=== PATIENT | male | born 2005 | race Two or more races ===

== ENCOUNTER → 2023-03-10 12:52 | Outpatient (BNVA) | payer OTHER, SELFPAY | PROVIDERS: Visit Provider Physician Assistant | DX: M77.8 Other enthesopathies, not elsewhere classified (principal) | CPT/HCPCS: 99203 ==

== ENCOUNTER → 2023-03-17 10:58 | Outpatient (BNVA) | payer OTHER, SELFPAY | PROVIDERS: Visit Provider Physician Assistant | DX: M25.531 Pain in right wrist (principal); M25.532 Pain in left wrist | CPT/HCPCS: 99213 ==

== ENCOUNTER → 2023-04-12 08:54 | Outpatient (BNVA) | payer OTHER, SELFPAY | PROVIDERS: Visit Provider Physician Assistant | DX: M77.8 Other enthesopathies, not elsewhere classified (principal) | CPT/HCPCS: 99213 ==

== ENCOUNTER → 2023-06-28 13:02 | Outpatient (BNVA) | payer OTHER, SELFPAY | PROVIDERS: Visit Provider Physician Assistant Medical | DX: M77.8 Other enthesopathies, not elsewhere classified (principal) | CPT/HCPCS: 99213 ==

== ENCOUNTER → 2023-07-13 11:07 | Outpatient (BNVA) | payer OTHER, SELFPAY | PROVIDERS: Visit Provider Physician Assistant | DX: M77.8 Other enthesopathies, not elsewhere classified (principal) | CPT/HCPCS: 99214 ==

== ENCOUNTER 2023-07-26 11:18 | Outpatient (AMB) | payer OTHER, SELFPAY ==
--- NOTE | 2023-07-26 11:27 | MHC.OFFVIS ---
Intake Vital Signs 07/26/23 11:29 Height 5 ft 5 in Weight 230 lb BMI 38.3 Handedness Right Intake Visit Reasons: water tender- Left wrist tendonitis Intake Note: Yosvany is a 17 year old right hand dominant male who presents today as a new patient for a evaluation of his left wrist pain, DOI 06/28/23. Patient reports he was at work and was working on a bolt line and he was putting a pin in the object he felt a sharp pain on the volar aspect of the wrist. He states that he also had some numbness and tingling after taking Ibuprofen. 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 Occured 1 month ago. Pain on left wrist. Occasional numbness on left palm, few times during day at most, sometimes at night, could affect 3rd and 4th finger. No swelling or redness. Dropped groceries a week ago. He mentions a similar incident, both wrists that time, last year. Treated ibuprofen and resolved. Treatment done so far: NSAIDs - helping wrist braces - helping, at night therapy - OT notes reviewed. Currently put on inability to work right now. [facility] Social History (Updated 07/26/23 @ 11:35 by Bobbi Desouza) Alcohol intake: never Patient Tobacco Use Status: Never used Tobacco Current occupational status: employed Current occupation: [employer]/ right hand dominant Review of Systems Const All systems reviewed & are unremarkable except as noted in HPI and below Physical Exam Vital Signs: BMI result Body Mass Index 38.3 Constitutional: Patient appears to be in no acute distress, well nourished and well developed. MSK: Inspection reveals appropriate head and neck positioning. No pain with palpation over the neck musculature. Cervical ROM was full. Spurling's sign negative. Bilateral shoulder ROM WNL. No ligamentous laxity or crepitance. No increased effusion. Hawkin's test is negative. No joint effusion noted. No deformity noted. No intrinsic hand weakness noted. No atrophy noted. Hina test positive on left. Carpal compression test positive left. Tinel sign negative. Strength is 5/5 in all muscle groups tested. No increased tone noted. Neurological: Neurologic examination of the upper and lower extremities was nonfocal with intact sensation, muscle stretch reflexes and without focal motor deficits . Ibanez?s negative bilaterally. Gait is non-antalgic without loss of balance. Results Reviewed Results Reviewed: OT notes reviewed. No past imaging available for my review. Assessment & Plan Assessment & Plan (1) Carpal tunnel syndrome of left wrist: Code(s): G56.02 - Carpal tunnel syndrome, left upper limb (2) De Quervain's tenosynovitis, left: Code(s): M65.4 - Radial styloid tenosynovitis [de Quervain] Plan OT raised suspicion for Carpal Tunnel Syndrome. He has mild positive carpal compression test on left. We will schedule for EMG. Continue wrist splints at night. Exam also suggestive of left de Quervain tenosynovitis. We will put him on a thumb spica splint which she will use during the day. To avoid any further risk, would advise no work for now until we do the EMG. At that time, inflammation would hopefully be improved also with a thumb spica splint. Continue OT. Assessment and plan discussed with patient, and patient was agreeable. All questions were answered thoroughly. Follow-up after EMG. Doreen Hawkins MD, ERIN Board Certified, [place] [employer] and Rehabilitation (ABPMR) Board Certified, [place] Board [employer] Electrodiagnostic [employer] (ABEM) Coding Level of Care Code New Pt Level 3 (74325) Diagnoses Carpal tunnel syndrome of left wrist G56.02 De Quervain's tenosynovitis, left M65.4
[2023-07-26 11:29] VITALS: BMI 38.3
== END 2023-07-26 12:09 | disposition home or self-care (01) ==
PROVIDERS: Visit Provider Physical Medicine & Rehabilitation
DX: G56.02 Carpal tunnel syndrome, left upper limb (principal); M65.4 Radial styloid tenosynovitis [de Quervain]
CPT/HCPCS: 99203

== ENCOUNTER → 2023-07-26 11:18 | Outpatient (BNVA) | payer OTHER, SELFPAY | PROVIDERS: Visit Provider Physical Medicine & Rehabilitation ==

== ENCOUNTER 2023-08-03 15:00 | Outpatient (RCR) | payer OTHER, SELFPAY ==
--- NOTE | 2023-07-19 14:07 | MHC.OT.EP ---
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 He was seen for another bilateral wrist injury this past spring, but did not seek outpatient therapy services. He has referral to [facility] music historian 07/26/23. On assessment today, he reports low resting pain in bilateral mid-palm/carpal region, left > right. He has some tenderness and instability noted w/ scaphoid shift test and pain w/ weightbearing through left palm. He has had some relief w/ rest and nighttime orthosis wear. We trialed Wrist Widget to left wrist and patient had immediate improvement in weightbearing ability and decreased pain. Pt will benefit from cont'd OT services for B/L wrist strain. Frequency and Duration: The patient will be seen 2x/wk for 4 weeks Short Term Goals: Pt to report ease w/ light daily activities w/ consistent Wrist Widget wear Pt to trial heat vs ice for comfort Ind w/ HEP Ind w/ joint protection techniques Longterm Goals: Left gross grasp >100lb w/ minimal pain Pain free B/L wrists Pt to return to work light duty Pt to demo good understanding of progression of strengthening (through modified weightbearing etc) Treatment Plan: Therapeutic Exercise Therapeutic Activity Home Exercise Program Splinting Patient Education Edema Control ADL Training Ultrasound Iontophoresis Paraffin Fluidotherapy MHP Cold Packs Soft Tissue Mobilization Kinesiotaping Possible dexamethasone Wrist Widget Nighttime orthoses Electronically Signed By: Bailey Traore, OTR/L CHT Please Sign and return to therapist. Thank you once again for your referral.
--- NOTE | 2023-08-10 07:23 | MHC.OT.DC ---
[address] [phone] F: [phone] Occupational Therapy Discharge Note Patient Name: Yosvany Jones Provider: Manjula Deleon PA-C Diagnosis: B/L Wrist Tendinitis Date of Surgery: Date of Evaluation: 07/19/23 Date of Discharge: 08/10/23 Treatments to Date: 4 Cancellations to Date: 1 No Shows to Date: 2 Discharge Status: Achieved Goals Independent with HEP Discharge Summary: Yosvany was initially seen 07/19/23 for B/L wrist pain and was OOW for one month. On assessment, he has mild discomfort in radial wrist and mid-palm, consistent w/ mild carpal tunnel syndrome and radial wrist tendinitis and possible carpal instability in left hand. We primarily focused on left hand, which showed great improved with use of Wrist Widget and joint protection/activity modification. He is now pain free at rest and has good strength w/ weight bearing, and a good a understanding of HEP. He currently has no issues w/ daily activities. He has EMG pending prior to return to work. Electronically Signed By: Ceci Nixon OT/s Reviewed/agree with student documentation: Yes Therapist: Bailey Traore OTR/L CHT Please Sign and return to therapist, thank you for your referral.
== END 2023-08-10 07:23 | disposition home or self-care (01) ==
LOC: HO.OT 15:00
PROVIDERS: Visit Provider Physician Assistant
DX: M79.642 Pain in left hand (principal); M79.641 Pain in right hand
CPT/HCPCS: 97035; 97110; 97140; 97165

== ENCOUNTER → 2023-09-07 10:31 | Outpatient (BNVA) | payer OTHER, SELFPAY | PROVIDERS: Visit Provider Physical Medicine & Rehabilitation ==

== ENCOUNTER 2023-10-27 13:37 | Outpatient (REF) | payer OTHER, SELFPAY ==
--- NOTE | 2023-10-27 13:39 | EMG_ITS ---
Chief complaint: Left wrist pain Reason for referral: Evaluate for Carpal Tunnel Syndrome Procedure done: Left upper extremity NCS/EMG Precautions and/or limitations: None The limb temperature was monitored continuously and remained between 32-36 degrees C during the performance of the NCS. Nerve Conduction Studies Anti Sensory Summary Table ?Stim Site NR Onset (ms) Norm Onset (ms) Peak (ms) Norm Peak (ms) O-P Amp (?V) Norm O-P Amp Site1 Site2 Delta-0 (ms) Dist (cm) Jesús (m/s) Norm Jesús (m/s) Left Median Anti Sensory (2nd Digit) Wrist ? 2.2 2.8 <3.6 29.1 >10 Wrist 2nd Digit 2.2 14.0 64 Left Radial Anti Sensory (Thumb) Forearm ? 1.2 1.8 <3.1 10.8 Forearm Thumb 1.2 0.0 Left Ulnar Anti Sensory (5th Digit) Wrist ? 1.9 2.6 <3.7 11.3 >15.0 Wrist 5th Digit 1.9 14.0 74 Motor Summary Table ?Stim Site NR Onset (ms) Norm Onset (ms) O-P Amp (mV) Norm O-P Amp iAmp (mV) Amp (1st) (%) Site1 Site2 Delta-0 (ms) Dist (cm) Jesús (m/s) Norm Jesús (m/s) Left Median Motor (Abd Poll Brev) Wrist ? 3.0 <3.9 10.2 >4.5 11.4 100.0 Elbow Wrist 3.6 21.0 58 >45 Elbow ? 6.6 10.5 12.0 102.9 Left Ulnar Motor (Abd Dig Minimi) Wrist ? 2.3 <3.0 7.9 >5 9.9 100.0 B Elbow Wrist 3.2 19.0 59 >45 B Elbow ? 5.5 7.5 9.7 94.9 A Elbow B Elbow 1.4 10.0 71 >45 A Elbow ? 6.9 7.1 9.3 89.9 EMG ?Side Muscle Nerve Root Ins Act Fibs Psw Amp Dur Poly Recrt Int Pat Comment Left 1stDorInt Ulnar C8-T1 Nml Nml Nml Nml Nml 0 Nml Complete Left FlexCarRad Median C6-7 Nml Nml Nml Nml Nml 0 Nml Complete Left Biceps Musculocut C5-6 Nml Nml Nml Nml Nml 0 Nml Complete Left Triceps Radial C6-7-8 Nml Nml Nml Nml Nml 0 Nml Complete Left Deltoid Axillary C5-6 Nml Nml Nml Nml Nml 0 Nml Complete FINDINGS: All motor and sensory nerves tested showed normal latencies, amplitudes and conduction velocities. Concentric needle EMG was performed in selected muscles of the left upper extremity. Study did not reveal signs of electric abnormalities as shown in the table below. IMPRESSION: 1. This is a normal study. 2. There is no electrodiagnostic evidence for median neuropathy, ulnar neuropathy, brachial plexopathy, or cervical radiculopathy. Thank you for your kind referral. Doreen Hawkins MD, ERIN Board Certified, [place] [employer] and Rehabilitation (ABPMR) Board Certified, [place] [employer] Electrodiagnostic [employer] (ABEM) CODIN [id number] MTDD
== END 2023-10-27 13:38 | disposition home or self-care (01) ==
LOC: HO.NEURO 13:37
PROVIDERS: Visit Provider Physical Medicine & Rehabilitation
DX: G56.02 Carpal tunnel syndrome, left upper limb (principal)
CPT/HCPCS: 95886; 95909

== ENCOUNTER → 2023-10-27 13:39 | Outpatient (BNV) | payer OTHER, SELFPAY | PROVIDERS: Visit Provider Physical Medicine & Rehabilitation | DX: M25.532 Pain in left wrist (principal) | CPT/HCPCS: 95886; 95909 ==

== ENCOUNTER 2023-11-30 12:01 | Outpatient (AMB) | payer OTHER, SELFPAY ==
[2023-11-30 12:07] VITALS: BMI 38.3
--- NOTE | 2023-11-30 12:07 | A.OFFVIS_ITS ---
Intake Vital Signs 11/30/23 12:07 Height 5 ft 5 in Weight 230 lb BMI 38.3 Intake Visit Reasons: OV- EMG Review CTS Intake Note: Yosvany 18 yr old female presents today for her EMG review and to follow up on her De Quervain's tenosynovitis of left hand. Xtaus updted in office. States his left hand is better. No new injury. 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 Pain on left wrist. Occasional numbness on left palm, few times during day at most, sometimes at night, could affect 3rd and 4th finger. No swelling or redness. He mentions a similar incident, both wrists that time, last year. Treated ibuprofen and resolved. On first visit, thought de quervain vs CTS. EMG done, LUE, normal, no CTS. He says no more pain now since he last saw me. No swelling. He was wearing the wrist splint. [facility] Social History Alcohol intake: never Patient Tobacco Use Status: Never used Tobacco Current occupational status: employed Current occupation: [employer]/ right hand dominant Physical Exam Vital Signs: BMI result Body Mass Index 38.3 Constitutional: Patient appears to be in no acute distress, well nourished and well developed. MSK: Inspection reveals appropriate head and neck positioning. No pain with palpation over the neck musculature. Cervical ROM was full. No joint effusion noted. No deformity noted. No intrinsic hand weakness noted. No atrophy noted. Hina test negative on left. Carpal compression test negative left. Tinel sign negative. Strength is 5/5 in all muscle groups tested. No increased tone noted. Neurological: Ibanez?s negative bilaterally. Gait is non-antalgic without loss of balance. Results Reviewed Results Reviewed: EMG by me 10/27/23 IMPRESSION: 1. This is a normal study. 2. There is no electrodiagnostic evidence for median neuropathy, ulnar neuropathy, brachial plexopathy, or cervical radiculopathy. Assessment & Plan Assessment & Plan (1) Hand pain: Code(s): M79.643 - Pain in unspecified hand Qualifiers: Laterality: left Qualified Code(s): M79.642 - Pain in left hand Plan Left hand pain. Exam today unremarkable. No signs of De Quervain tenosynovitis. EMG normal. From my point of view, he can go back to work. Return to work letter given. Assessment and plan discussed with patient, and patient was agreeable. All questions were answered thoroughly. Doreen Hawkins MD, ERIN Board Certified, [place] [employer] and Rehabilitation (ABPMR) Board Certified, [place] [employer] Electrodiagnostic Medicine (ABEM) Orders: Orders XR hand LT min 3V Today M79.643 - Pain in unspecified hand Coding Level of Care Code Est Pt Level 3 (31117) Diagnoses Pain of left hand M79.642 Laterality: left
== END 2023-11-30 12:27 | disposition home or self-care (01) ==
PROVIDERS: Visit Provider Physical Medicine & Rehabilitation
DX: M79.642 Pain in left hand (principal)
CPT/HCPCS: 99213

== ENCOUNTER 2023-11-30 14:51 | Outpatient (REF) | payer OTHER, SELFPAY ==
--- NOTE | ~2023-11-30 | XR_ITS ---
EXAMINATION: XR HAND, LEFT CLINICAL INFORMATION: Pain. COMPARISON: None available. TECHNIQUE: PA, lateral, and oblique views of the left hand. FINDINGS: The bones and soft tissues are normal. No fracture. Alignment is anatomic. Joint spaces are maintained. No erosions or soft tissue calcifications. XR/XR hand LT min 3V IMPRESSION: Normal left hand.
== END 2023-11-30 14:52 | disposition home or self-care (01) ==
LOC: HO.HOSX 14:51
PROVIDERS: Visit Provider Physical Medicine & Rehabilitation
DX: M79.642 Pain in left hand (principal); M25.532 Pain in left wrist
CPT/HCPCS: 73130; 99212